=== PATIENT | male | born 1970 | race African-American/Black ===

== ENCOUNTER 2023-03-03 06:00 | Day surgery (SDC) | payer MEDICAID ==
[~2023-03-03] VITALS: Ht 180.3 cm; Wt 90.7 kg
[2023-03-03] MEDS ORDERED: MIDAZOLAM HCL 5 MG/5 ML VIAL ONE (06:26)
[2023-03-03] MEDS ORDERED: MEPERIDINE 100 MG INJ. 100 MG/ML VIAL ONE (06:26)
[2023-03-03] MEDS ORDERED: SIMETHICONE 40 MG/0.6 ML ML ONE (06:26)
[2023-03-03 15:07] VITALS: BP_SYST 146; PULSE 77; RESP 18; TEMP 97.2; O2SAT 100
== END 2023-03-03 09:05 | disposition home or self-care (01) ==
LOC: SDS 06:00 → SMU 06:00 → SDS 09:05
PROVIDERS: ATTEND Internal Medicine Gastroenterology
DX: Z12.11 Encounter for screening for malignant neoplasm of colon (principal); K64.8 Other hemorrhoids; I10 Essential (primary) hypertension; E11.9 Type 2 diabetes mellitus without complications; Z79.899 Other long term (current) drug therapy
CPT/HCPCS: 45378; 99152; 82962; 99153; G0378; J2250; J2175